=== PATIENT | female | born 1985 | race Caucasian/White ===

== ENCOUNTER 2024-11-09 12:43 | Outpatient (REF) | payer BC, SELFPAY ==
--- NOTE | ~2024-11-09 | US_ITS ---
PROCEDURE: Ultrasound-guided foam sclerotherapy left lower extremity varicose veins History: Varicose veins Indication: Symptomatic varicose veins left lower extremity. Symptoms include pain and burning and edema TECHNIQUE/FINDINGS Appropriate preprocedural clinical history and imaging studies were reviewed. The patient was brought to the department and placed in the supine position Preliminary ultrasound demonstrates varicose veins in the left lower extremity which are to be shraddha varicosities of the greater saphenous vein. Sites were marked on the medial and lateral calf and the areas were sterilely prepped and draped. The varicosities were accessed with a 23-gauge butterfly needle under direct ultrasound guidance with permanent recordings. Sclerotherapy foam prepared by the provider (1% Sotradecol with room air 1:4) was then delivered via the 2 access cc with visualization of the foam in the varicose veins. The accesses were removed. A compression wrap was applied.. Patient tolerated the procedure well with no immediate competitions US/US Vein Inj Sclerosant Multi Impression: Ultrasound-guided foam sclerotherapy left lower extremity varicose veins Electronically signed by: Ramon Ruiz MD 11/09/2024 03:35 PM JANINA RODRIGUEZ
--- NOTE | ~2024-11-09 | US_ITS ---
PROCEDURE: Ultrasound-guided foam sclerotherapy left lower extremity varicose veins History: Varicose veins Indication: Symptomatic varicose veins left lower extremity. Symptoms include pain and burning and edema TECHNIQUE/FINDINGS Appropriate preprocedural clinical history and imaging studies were reviewed. The patient was brought to the department and placed in the supine position Preliminary ultrasound demonstrates varicose veins in the left lower extremity which are to be shraddha varicosities of the greater saphenous vein. Sites were marked on the medial and lateral calf and the areas were sterilely prepped and draped. The varicosities were accessed with a 23-gauge butterfly needle under direct ultrasound guidance with permanent recordings. Sclerotherapy foam prepared by the provider (1% Sotradecol with room air 1:4) was then delivered via the 2 access cc with visualization of the foam in the varicose veins. The accesses were removed. A compression wrap was applied.. Patient tolerated the procedure well with no immediate competitions US/US guide needle placement Impression: Ultrasound-guided foam sclerotherapy left lower extremity varicose veins Electronically signed by: Ramon Ruiz MD 11/09/2024 03:35 PM JANNIA RODRIGUEZ
[2024-11-09] MEDS: Sodium Tetradecyl Sulfate 1% 2 ML VIAL 4 ML INTRAVARIC (14:32)
== END 2024-11-09 12:44 | disposition home or self-care (01) ==
LOC: HO.US 12:43
PROVIDERS: Visit Provider Student in an Organized Health Care Education/Training Program
DX: I87.2 Venous insufficiency (chronic) (peripheral) (principal); I83.812 Varicose veins of left lower extremity with pain; I83.892 Varicose veins of left lower extremity with other complications
CPT/HCPCS: 36471; 36482; 76942

== ENCOUNTER → 2024-11-09 12:47 | Outpatient (BNV) | payer BC, SELFPAY | PROVIDERS: Visit Provider Student in an Organized Health Care Education/Training Program | DX: I83.12 Varicose veins of left lower extremity with inflammation (principal) | CPT/HCPCS: 36470; 76942 ==